=== PATIENT | female | born 1985 | race Caucasian/White ===

== ENCOUNTER 2016-09-30 00:41 | Emergency (ER) | payer BC ==
[~2016-09-30] VITALS: Ht 167.6 cm; Wt 77.1 kg
--- NOTE | 2016-09-30 00:51 | PHYS DOC ---
Adult General Chief Complaint Chief Complaint: LOWER BACK PAIN OR INJURY HPI HPI Patient is a 30 year old F who presents with right lower back pain. Patient states around 8:00 this evening she developed increasing right lower back pain after brushing the dogs. Patient denies any trauma. Patient denies any radiation down her leg. Patient denies any decreased starting or stopping her urine. Patient denies any bowel incontinence. Patient denies any saddle anesthesia. Patient states she is not having history of back problems. Patient denies any fevers. Patient is able to walk however it's painful. Resting helps with the pain. Patient has no other complaints. Review of Systems Review of Systems GEN: Denies fevers, chills, sweats HEENT: Denies blurred vision, sore throat CV: Denies chest pain RESP: Denies shortness of air, cough GI: Denies n/v/d NEURO: Denies confusion, dizziness MSK: Right lower back pain Current Medications Current Medications Current Medications Medications (Trade) Dose Ordered Sig/[place] Start Time Stop Time Status Last Admin Dose Admin Dexamethasone Sodium Phosphate (Decadron) 10 mg 1X ONCE 09/30/16 01:00 09/30/16 01:24 DC 09/30/16 01:15 10 MG Diazepam (Valium) 5 mg 1X ONCE 09/30/16 01:00 09/30/16 01:24 DC 09/30/16 01:14 5 MG Ketorolac Tromethamine (Toradol Im) 60 mg 1X ONCE 09/30/16 01:00 09/30/16 01:24 DC 09/30/16 01:15 60 MG Allergies Allergies Allergies Coded Allergies Type Severity Reaction Last Updated Verified No Known Drug Allergies 09/30/16 No Physical Exam Physical Exam GEN.: No apparent distress. Alert and oriented. HEENT: Head is normocephalic, atraumatic NECK: Supple. LUNGS: CTAB. HEART: RRR, S1, S2 present. Peripheral pulses intact ABDOMEN: Soft, nontender. Positive bowel sounds. EXTREMITIES: Without any cyanosis. NEUROLOGIC: Normal speech, normal tone PSYCHIATRIC: Normal affect, normal mood. SKIN: No ulcerations BACK: No midline tenderness to the T or L-spine, right paraspinous tenderness over the L-spine, no saddle anesthesia noted, muscle strength 5 out of 5 to lower extremity bilaterally, dorsal pedis pulse +2 lower extremity bilaterally, patient able to walk and stand on tippy toes without any difficulties Current Patient Data Vital Signs Vital Signs Date Time Temp Pulse Resp B/P (MAP) Pulse Ox O2 Delivery O2 Flow Rate FiO2 09/30/16 00:58 98.2 77 18 99 Room Air 98.2 EKG EKG [] Radiology/Procedures Radiology/Procedures [] Course & Med Decision Making Course & Med Decision Making Pertinent Labs and Imaging studies reviewed. (See chart for details) ED course: Patient was seen and examined in the emergency room upon arrival based on the patient's history of present illness and no apparent trauma I do not believe the patient needs an x-ray or CT scan of her lower back and will treat with anti -inflammatories and muscle relaxers. 0143: Patient was reevaluated who is feeling better and was ready go home, recommended patient follow-up with PCP in one to 2 days MDM: After reviewing the chart, CC/HPI/PMH, physical exam, I do not believe the patient sustained a traumatic back injury warranting further workup and/or admission at this time. Based on the patient's history of present illness and lack of trauma I do not believe a CT scan/MRI of the L-spine is needed at this time. Patient denies any dysuria or any urinary symptoms therefore do not believe the UA is indicated at this time. On reexamination patient is improved and stable for discharge. Recommended short-term follow-up with PCP in one to 2 days. Additional verbal discharge instructions were provided to the patient and that if symptoms get worse or any new symptoms arise that are worrisome to the patient she is to return to the emergency room immediately [] Dragon Disclaimer Dragon Disclaimer This electronic medical record was generated, in whole or in part, using a voice recognition dictation system. Departure Departure Impression: Primary Impression: Lower back pain Disposition: 01 HOME, SELF-CARE Condition: IMPROVED Patient Instructions: Back Pain, Adult Additional Instructions: Please follow up with your family doctor in 1-2 days and return if symptoms increase Scripts Cyclobenzaprine Hcl (CYCLOBENZAPRINE HCL) 10 Mg Tablet 1 TAB PO TID Y for MUSCLE SPASMS for 5 Days, #15 TAB Prov: IDANIA BEAULIEU DO 09/30/16 Ibuprofen (IBUPROFEN) 800 Mg Tablet 800 MG PO PRN Q8HRS Y for INFLAMMATION for 10 Days, #30 TAB Prov: IDANIA BEAULIEU DO 09/30/16 Problem Qualifiers Primary Impression: Lower back pain Chronicity: acute Back pain laterality: right Sciatica presence: without sciatica Qualified Codes: M54.5 - Low back pain IDANIA BEAULIEU DO Sep 30, 2016 00:50
[2016-09-30 00:58] VITALS: BP 127/73
[2016-09-30] MEDS ORDERED: diazePAM 5 MG TABLET PO ONE (01:00)
[2016-09-30] MEDS ORDERED: KETOROLAC TROMETHAMINE 60 MG/2 ML INJ. IM ONE (01:00)
[2016-09-30] MEDS ORDERED: DEXAMETHASONE SOD PHOS 4 MG/ML VIAL IM ONE (01:00)
[2016-09-30] MEDS ORDERED: CYCL10TA2 PO (01:07)
[2016-09-30] MEDS ORDERED: IBUP-1060 PO (01:07)
== END 2016-09-30 01:51 | disposition home or self-care (01) ==
LOC: ER 00:41
DX: M54.5 Low back pain (principal)
CPT/HCPCS: 96372; 99284; J1100; J1885